=== PATIENT | female | born 1940 | race Asian ===

== ENCOUNTER 2020-05-20 21:41 | Emergency (ER) | payer OTHER ==
[~2020-05-20] VITALS: Ht 157.5 cm; Wt 63.5 kg
[2020-05-20 22:17] VITALS: BP_SYST 161
[2020-05-20] MEDS ORDERED: ENALAPRILAT DIHYDRATE 1.25 MG/ML VIAL IVP ONE (23:30)
[2020-05-20 23:35] LABS: BASOPHILS % (AUTO) 0.6 % (0.0-2.0); EOSINOPHILS # (AUTO) 0.1 K/uL (0.0-0.4); EOSINOPHILS % (AUTO) 2.1 % (0.0-4.0); HEMATOCRIT 42.9 % (36-48); HEMOGLOBIN 14.2 g/dL (12.0-16.0); LYMPHOCYTES # (AUTO) 1.8 K/uL (1.0-5.5); LYMPHOCYTES % (AUTO) 26.9 % (20.5-51.5); MEAN CORPUSCULAR HEMOGLOBIN 31 pg (27-31); MEAN CORPUSCULAR HGB CONC 33 % (32-36); MEAN CORPUSCULAR VOLUME 93 fL (79.0-98.0); MONOCYTES # (AUTO) 0.4 K/uL (0.0-1.0); MONOCYTES % (AUTO) 6.6 % (1.7-9.3); NEUTROPHILS # (AUTO) 4.3 K/uL (1.8-7.7); NEUTROPHILS % (AUTO) 63.8 % (40.0-70.0); PLATELET COUNT (AUTO) 231 K/uL (130-430); RED BLOOD CELL COUNT(AUTO) 4.61 MIL/uL (4.2-6.2); RED CELL DISTRIBUTION WIDTH 14.2 % (9.0-15.0); WHITE BLOOD COUNT (AUTO) 6.7 K/uL (4.8-10.8)
[2020-05-20 23:50] LABS: ANION GAP 10 (5-15); CALCIUM 9.2 mg/dL (8.4-11.0); CHLORIDE 106 mmol/L (98-107); CREATININE 1.13 mg/dL (0.55-1.30); GLUCOSE 122 mg/dL (70-99); POTASSIUM 4.3 mmol/L (3.5-5.1); SODIUM SERUM 143 mmol/L (136-145); UREA NITROGEN, BLOOD 29 mg/dL (8-21)
[2020-05-20 23:56] LABS: ALANINE AMINOTRANSFERASE 38 U/L (12-78); ALBUMIN 3.7 g/dL (3.4-4.8); ASPARTATE AMINOTRANSFERASE 30 U/L (10-37); TOTAL BILIRUBIN 0.2 mg/dL (0.0-1.0)
[2020-05-21] MEDS ORDERED: LOSA1TAB40 PO (01:21)
[2020-05-21 01:30] VITALS: BP_SYST 144
== END 2020-05-21 01:30 | disposition home or self-care (01) ==
LOC: SED 21:41
DX: R51.9 Headache, unspecified (principal); I10 Essential (primary) hypertension
CPT/HCPCS: 36415; 80053; 84484; 85025; 93005; 96374; 99284

== ENCOUNTER 2022-04-28 14:16 | Inpatient (IN) | payer OTHER ==
[~2022-04-28] VITALS: Ht 162.6 cm; Wt 72.3 kg
[~2022-04-28 14:16] MED LIST: LOSA1TAB40 PO
[2022-04-28 14:33] VITALS: BP_SYST 150
--- NOTE | 2022-04-28 14:45 | NUR ---
ER at bedside examining patient.
--- NOTE | 2022-04-28 15:00 | NUR ---
Pt brought in by family from home. Chief complaint generalized weakness, bilateral extremity weakness. Pt has cap return less than 3 seconds. Pt complains of general pain to back. Pt states numbness and tingling to bilateral extremities since 2021. Pt is aaox3, skin intact, left sided weakness from previous stroke.
--- NOTE | 2022-04-28 15:04 | NUR ---
covid and flu swab collected at bedside
--- NOTE | 2022-04-28 15:07 | NUR ---
electronic organ technician bedside at this time. Pt cooperative; tolerates well.
[2022-04-28 15:21] LABS: BILIRUBIN,URINE NEGATIVE (NEGATIVE); BLOOD, URINE NEGATIVE (NEGATIVE); CLARITY/URINE CLEAR (CLEAR); COLOR,URINE YELLOW (YELLOW); GLUCOSE,URINE NEGATIVE (NEGATIVE); KETONES,URINE NEGATIVE (NEGATIVE); LEUKOCYTE ESTERASE ,URINE NEGATIVE (NEGATIVE); NITRITE, URINE NEGATIVE (NEGATIVE); PROTEIN URINE NEGATIVE (NEGATIVE); UROBILINOGEN,URINE 0.2 (0.2-1.0)
--- NOTE | 2022-04-28 15:25 | NUR ---
# 22 gauge angiocath placed to LEFT ANTE CUBITAL. Use of asceptic technique. Opsite placed over site. Blood return noted. Blood for lab drawn from site. Flushed with 10 cc of normal saline. No evidence of infiltration noted. Patient tolerated well.
--- NOTE | 2022-04-28 15:25 | NUR ---
PT medicated per MD order IVP Toradol, oversight of NONA [place]
[2022-04-28] MEDS ORDERED: KETOROLAC TROMETHAMINE 30 MG VIAL IVP ONE (15:30)
[2022-04-28 16:01] LABS: BASOPHILS % (AUTO) 0.4 % (0.0-2.0); EOSINOPHILS # (AUTO) 0.1 K/uL (0.0-0.4); EOSINOPHILS % (AUTO) 1.4 % (0.0-4.0); HEMATOCRIT 41.5 % (36-48); HEMOGLOBIN 13.8 g/dL (12.0-16.0); LYMPHOCYTES % (AUTO) 37.5 % (20.5-51.5); MEAN CORPUSCULAR HEMOGLOBIN 31 pg (27-31); MEAN CORPUSCULAR HGB CONC 33 % (32-36); MEAN CORPUSCULAR VOLUME 94 fL (79.0-98.0); MONOCYTES # (AUTO) 0.5 K/uL (0.0-1.0); MONOCYTES % (AUTO) 8.7 % (1.7-9.3); NEUTROPHILS # (AUTO) 2.8 K/uL (1.8-7.7); PLATELET COUNT (AUTO) 194 K/uL (130-430); RED BLOOD CELL COUNT(AUTO) 4.41 MIL/uL (4.2-6.2); RED CELL DISTRIBUTION WIDTH 13.5 % (9.0-15.0); WHITE BLOOD COUNT (AUTO) 5.5 K/uL (4.8-10.8)
[2022-04-28] MEDS ORDERED: METO-442 PO (16:06)
[2022-04-28] MEDS ORDERED: NEU100 PO (16:06)
[2022-04-28] MEDS ORDERED: COLC0.6C3 PO (16:06)
[2022-04-28] MEDS ORDERED: AMLO5TAB92 PO (16:06)
[2022-04-28] MEDS ORDERED: ATOR10TA68 PO (16:06)
--- NOTE | 2022-04-28 16:06 | NUR ---
MEDICATION RECONCILED PER PHYSICAL BOTTLES PROVIDED PER SISTER.
[2022-04-28 16:09] LABS: ANION GAP 8 (5-15); CALCIUM 9.5 mg/dL (8.4-11.0); CHLORIDE 101 mmol/L (98-107); CREATININE 1.24 mg/dL (0.55-1.30); GLUCOSE 114 mg/dL (70-99); UREA NITROGEN, BLOOD 26 mg/dL (8-21)
[2022-04-28 16:16] LABS: ALANINE AMINOTRANSFERASE 23 U/L (12-78); ALBUMIN 3.6 g/dL (3.4-4.8); ASPARTATE AMINOTRANSFERASE 14 U/L (10-37); TOTAL BILIRUBIN 0.4 mg/dL (0.0-1.0); URIC ACID 7.2 mg/dL (2.4-7.0)
[2022-04-28] MEDS ORDERED: ONDANSETRON HCL 4 MG/2 ML VIAL IVP ONE ×2 (16:30→20:15)
[2022-04-28] MEDS ORDERED: MORPHINE 2 MG/ML INJ. SYRINGE IVP ONE ×2 (16:30→20:15)
[2022-04-28] MEDS ORDERED: NACL 0.9% 1,000 ML IV ONE (16:30)
--- NOTE | 2022-04-28 18:27 | NUR ---
Admit bed requested Patient will be admitted to care of . Admitted to MedSurg unit. Diagnosis General weakness Inpatient (Yes or No) y Observation (Yes or No) n Orientation concerns or request close to nursing station (Yes or No) n Covid Status neg On vent or bipap n Isolation requirements n Needs a sitter n From Home (Yes or if No enter name of facility) home Requires Dialysis (Yes or No) n Med Rec Completed (Yes of No) completed
--- NOTE | 2022-04-28 19:15 | NUR ---
PT RECEIVED FROM JUSTINA RUFFIN
--- NOTE | 2022-04-28 19:20 | NUR ---
PT VSS, EVEN UNLABORED RESPIRATIONS HOOKED TO VITAL MONITOR, PT IS C/O R KNEE PAIN AND BACK PAIN, DR MALAVE WAS CALLED AWAITING FOR DR RESPONSE FOR ORDER TO BE PLACED. PT RATES PAIN 7 OUT OF 10
--- NOTE | 2022-04-28 19:30 | NUR ---
Report given to NONA Michaud.
--- NOTE | 2022-04-28 22:14 | NUR ---
no changes, pt resting nad, vss, even unlabored respirations, family at bedside
[2022-04-28] MEDS ORDERED: MORPHINE 2 MG/ML INJ. SYRINGE IVP PRN (23:30)
[2022-04-28] MEDS ORDERED: ONDANSETRON HCL 4 MG/2 ML VIAL IVP PRN (23:30)
--- NOTE | 2022-04-29 00:13 | NUR ---
no changes, vss family at bedside pt asleep
--- NOTE | 2022-04-29 02:54 | NUR ---
pt sleeping, family at bedside, no changes vss, nad, even unlabored respirations. safety rails up pt connected to vital monitor.
[2022-04-29] MEDS: HYDROcodone/ACETAMIN 5-325 MG TAB (NORCO/ VICODIN) PO PRN (05:01)
--- NOTE | 2022-04-29 06:52 | NUR ---
pt asleep, family at bedside, pt connected to monitor, vss, nad, even unlabored respirations.
--- NOTE | 2022-04-29 07:35 | NUR ---
report to Mendez CASTELLANO
--- NOTE | 2022-04-29 08:26 | NUR ---
ON DUTY RECEIVED THIS PT LYING ON BED WITH FAMILY BEDSIDE. PT WAS A/OX4, DENIES PAIN NOW. PT WAS ADMITED TO M/S. NO BED ASSIGMENT NOW.
--- NOTE | 2022-04-29 13:00 | NUR ---
WITH EMT ASSISTANCE, PT GOT UP THE BED, URINATED IN BEDSIDE COMMANDO. 300ML URINE RECORDED.
[2022-04-29] MEDS ORDERED: ATORVASTATIN 10 MG TABLET PO ONE (14:15)
[2022-04-29] MEDS ORDERED: GABAPENTIN 300 MG CAPSULE PO ONE (14:15)
[2022-04-29] MEDS ORDERED: amLODIPine BESYLATE 5 MG TABLET PO ONE (14:15)
[2022-04-29] MEDS ORDERED: METOPROLOL TARTRATE 50 MG TABLET PO ONE (14:15)
--- NOTE | 2022-04-30 07:16 | NUR ---
Report given to Pk CASTELLANO for continuity of care. Opportunity for questions provided and answered.
--- NOTE | 2022-04-30 07:20 | NUR ---
PT RECEIVED, CARE ASSUMED. INTRODUCED MYSELF. PT LAYING IN BED CALM, RELAXED. NO ACUTE DISTRESS. UPDATED ALL INFO. NOTED VITAL SIGNS. WILL CONTINUE TO MONITOR
[2022-04-30] MEDS: amLODIPine BESYLATE 5 MG TABLET PO SCH (09:01)
[2022-04-30] MEDS: GABAPENTIN 300 MG CAPSULE PO SCH (09:01)
[2022-04-30] MEDS: METOPROLOL TARTRATE 50 MG TABLET PO SCH (09:01)
[2022-04-30] MEDS: ATORVASTATIN 10 MG TABLET PO SCH (09:01)
--- NOTE | 2022-04-30 10:35 | NUR ---
ASSISTED PT TO BED SIDE CAMMODE. FAMILY AT BED SIDE. NO ACUTE DISTRESS NOTED. WILL CONTINUE TO MONITOR
--- NOTE | 2022-04-30 13:53 | NUR ---
PT SITTIN UP IN BED EATING LUNCH. V/S NOTED. FAMILY AT BED SIDE. WILL CONTINUE TO MONITOR
--- NOTE | 2022-04-30 19:25 | NUR ---
PATIENT RESTING IN BED. VSS. NO S/S OF SOB OR ACUTE DISTRESS NOTED. FAMILY AT BEDSIDE. SAFETY PRECAUTIONS IN PLACE, WILL CONTINUE TO MONITOR.
[2022-04-30] MEDS: HYDROcodone/ACETAMIN 5-325 MG TAB (NORCO/ VICODIN) PO PRN (19:45)
[2022-04-30] MEDS ORDERED: HYDROcodone/ACETAMIN 5-325 MG TAB (NORCO/ VICODIN) ONE (19:48)
--- NOTE | 2022-04-30 22:50 | NUR ---
REPORT GIVEN TO NONA LYNN.
[2022-04-30 23:30] VITALS: BP_SYST 144
--- NOTE | 2022-04-30 23:40 | NUR ---
ADMISSION NOTE Received patient from ER via gurney. Patient admitted with diagnosis of GENERALIZED WEAKNESS. Patient is awake, alert, oriented X 4. Patient oriented to hospital room, call light, toileting, pain management and safety-teach back done. Patient informed that their room number is 113B. Personal belongings checked and Belongings List documented. Call light within reach.
[2022-05-01] VITALS (7 sets, daily range): BP systolic 106–144
[2022-05-01 07:24] LABS: ANION GAP 8 (5-15); CALCIUM 9.2 mg/dL (8.4-11.0); CHLORIDE 104 mmol/L (98-107); CREATININE 0.86 mg/dL (0.55-1.30); GLUCOSE 92 mg/dL (70-99); UREA NITROGEN, BLOOD 13 mg/dL (8-21)
[2022-05-01 07:44] LABS: BASOPHILS % (AUTO) 0.5 % (0.0-2.0); EOSINOPHILS # (AUTO) 0.1 K/uL (0.0-0.4); EOSINOPHILS % (AUTO) 2.9 % (0.0-4.0); HEMOGLOBIN 13.6 g/dL (12.0-16.0); LYMPHOCYTES # (AUTO) 1.9 K/uL (1.0-5.5); LYMPHOCYTES % (AUTO) 38.7 % (20.5-51.5); MEAN CORPUSCULAR HEMOGLOBIN 31 pg (27-31); MEAN CORPUSCULAR HGB CONC 33 % (32-36); MEAN CORPUSCULAR VOLUME 94 fL (79.0-98.0); MONOCYTES # (AUTO) 0.5 K/uL (0.0-1.0); MONOCYTES % (AUTO) 10.2 % (1.7-9.3); NEUTROPHILS # (AUTO) 2.3 K/uL (1.8-7.7); NEUTROPHILS % (AUTO) 47.7 % (40.0-70.0); PLATELET COUNT (AUTO) 167 K/uL (130-430); RED BLOOD CELL COUNT(AUTO) 4.36 MIL/uL (4.2-6.2); RED CELL DISTRIBUTION WIDTH 13.5 % (9.0-15.0); WHITE BLOOD COUNT (AUTO) 4.9 K/uL (4.8-10.8)
--- NOTE | 2022-05-01 07:53 | NUR ---
Says she was too weak and in pain to do her gardening at home. Pain in her back responds to heating pad. Now pain is in lower extremities.
[2022-05-01] MEDS: amLODIPine BESYLATE 5 MG TABLET PO SCH (08:37)
[2022-05-01] MEDS: HYDROcodone/ACETAMIN 5-325 MG TAB (NORCO/ VICODIN) PO PRN ×2 (08:37→19:08)
[2022-05-01] MEDS: GABAPENTIN 300 MG CAPSULE PO SCH (08:37)
[2022-05-01] MEDS: ATORVASTATIN 10 MG TABLET PO SCH (08:37)
[2022-05-01] MEDS: METOPROLOL TARTRATE 50 MG TABLET PO SCH (08:38)
--- NOTE | 2022-05-01 15:08 | NUR ---
PHYSICAL THERAPY CO-SIGN The Physical Therapy Progress Notes documented by Car Ferrier have been reviewed. Reviewed/Co-Signed by: Michael Mathews Documentation Done by:BETH MARTINEZ Addendum: 05/01/22 at 1508 by Michael Mathews PT Amended: Links added.
--- NOTE | 2022-05-01 15:18 | NUR ---
LEFT MESSAGE FOR DOCTOR ARMANDO REGARDING MRI RESULT.
[2022-05-01] MEDS ORDERED: DOCUSATE SODIUM 100 MG CAPSULE PO ONE (16:15)
--- NOTE | 2022-05-01 19:39 | NUR ---
Received a call from [facility], spoke to Ashley, she said the patient is going to Rm. [id number], the number for the report is [phone]
--- NOTE | 2022-05-01 19:39 | NUR ---
DISCHARGE PLANNING LATE ENTRY DUE TO PT CARE 16:30 DR ROBERTS HERE. CLINICALS FAXED TO [facility] PER 'S REQUEST
--- NOTE | 2022-05-01 20:52 | NUR ---
Called [employer], spoke to Linda, she said the transport([facility]) has been arranged for this patient. ETA will be between 2300 and 2330. Tarik Cosme is aware as per Linda.
[2022-05-01] MEDS ORDERED: SENNOSIDES/DOCUSATE SODIUM 1 TAB TABLET(SENOKOT-S) PO SCH (21:00)
[2022-05-01] MEDS ORDERED: DOCUSATE SODIUM 100 MG CAPSULE PO SCH (21:00)
--- NOTE | 2022-05-01 21:00 | NUR ---
RECEIVED MESSAGE THAT [facility] CALLED AND HAS A BED AVAILABLE FOR PT, CALLED AND INFORMED DR ROBERTS WHO ORDERED PT TO BE TRANSFERRED TO [facility] MD SPOKE AND EXPLAINED TO PT SISTER WHO VERBALIZED UNDERSTANDING, TRANSFER FORM WERE SIGNED BY PT SISTER, VSS. REPORT GIVEN TO NONA PETER. DR. ROBERTS ORDERED THAT PT SHOULD CONTINUE ALL MEDS ORDERED. PT LEFT UNIT AROUND 2330 VIA [facility] IN THE COMPANY OF SISTER AND DAUGHTER. PT VOIDED BEFORE TRANSFER AND IN STABLE CONDITION, HAS AN IV ACCESS ON LAC, 20G FOR THE RN REQUEST
[2022-05-02 08:06] LABS: FOLATE (FOLIC ACID) 18.4 ng/mL (>3.0)
== END 2022-05-01 23:26 | disposition short-term general hospital (02) | DRG 552 ==
LOC: SED 14:16 → SMU 18:30
PROVIDERS: ADMIT Internal Medicine; ATTEND Internal Medicine
DX: M51.26 Other intervertebral disc displacement, lumbar region (principal); G62.9 Polyneuropathy, unspecified; I10 Essential (primary) hypertension; M10.9 Gout, unspecified; Z20.822 Contact with and (suspected) exposure to COVID-19; R20.0 Anesthesia of skin
CPT/HCPCS: 36415; 70551; 71045; 72131; 72141; 72148; 76376; 80048; 80053; 81003; 82607; 82746; 83735; 83880; 84484; 84550; 85025; 93005; 97112-GP; 97116-GP; 97163-GP; 97530-GP; 99285; J1885; J2270; J2405